=== PATIENT | female | born 1935 | race Caucasian/White ===

== ENCOUNTER 2019-09-15 01:53 | Day surgery (SDC) | payer MEDICARE, SELFPAY ==
[2019-09-08 15:07] VITALS: BMI 24.2
[2019-09-15] MEDS: LACTATED RINGERS 1,000 ML 150 ML IV CONT (09:13)
[2019-09-15 09:17] VITALS: BP 167/53; PULSE 66; RESP 20; TEMP 37.1; O2SAT 98; BMI 24.0
--- NOTE | 2019-09-15 10:13 | WPDANESEPPF ---
Anes - Initial Pre Proc Eval Procedure: Operation Date: 09/15/19 09:30 Proposed Procedures p Colonoscopy - Aba Ontiveros MD Date/Time: 09/15/19 10:13 Surgeon: Aba Ontiveros MD Pre Op Diagnosis: rectal bleeding, hx colon polyps Patient Data Age: 84 Gender: F Height: 5 ft 2 in Weight: 59.7 kg Last Vital Signs Temp 98.7 F 09/15/19 09:17 Pulse 66 09/15/19 09:17 Resp 20 09/15/19 09:17 BP 167/53 H 09/15/19 09:17 Pulse Ox 98 09/15/19 09:17 Allergies Allergy/AdvReac Type Severity Reaction Status Date / Time No Known Allergies Allergy Verified 09/15/19 08:49 Home Medications Medication Instructions Recorded Confirmed Type Eliquis 2.5 mg PO BID 06/13/19 09/08/19 History amlodipine 10 mg PO DAILY 06/13/19 09/08/19 History carvedilol 12.5 mg PO Q12H 06/13/19 09/08/19 History hydrochlorothiazide 25 mg tablet 25 mg PO DAILY #30 tablet 07/17/19 09/08/19 Rx losartan 100 mg tablet 100 mg PO DAILY 07/17/19 09/08/19 History melatonin 10 mg disintegrating 10 mg PO DAILY 07/17/19 09/08/19 History tablet oxybutynin chloride 10 mg 10 mg PO DAILY #90 tablet 07/18/19 09/08/19 Rx tablet,extended release 24 hr lorazepam 0.5 mg PO QPM 09/08/19 09/08/19 History Patient hx anesthesia problems: none Family hx anesthesia problems: none [facility] Social History Social History Social History: Patient was home alone and has a Life Alert button. Patient is a full code and her daughter Sandra is her durable power reservoir engineering consultant for healthcare. The patient is a full code. Patient has a son and a daughter. Her daughter helps but her son has MS and is unable to. She is retired dancer. Smoking status: Never smoker Alcohol intake: never Substance use: never Substance use type: does not use Gender identity (if verbalized by the patient): Female Spiritual care concerns: No Agree to blood products: Yes Anes - Eval Final PreProcedure Day of Procedure 09/15/19 10:13 Patient weight: normal Heart: regular rate and rhythm Lungs: clear to auscultation Airway: Mallampati scale class II Neurological: alert and oriented Last oral intake: >/= 8 hours ASA classification: III Emergent: no Anesthetic plan: proceed Anesthesia type and monitoring: general GIVS and standard monitoring Informed Consent: The patient's anesthetic plan and its attendant risks and benefits were discussed with the patient/family/POA. Questions were solicited and answers provided to the satisfaction of the patient/family/POA.
--- NOTE | 2019-09-15 10:30 | P.CONGI_ITS ---
Assessment and Plan Additional Plan This is an 84-year-old white female patient seen in evaluation at the request Dr. Won Sinclair. Patient also followed by Dr. Padgett. Patient has noticed intermittent rectal bleeding over the last 1 year. She typically notes that after a bowel movement. Described as bright red blood per rectum. She denies any abdominal pain. Her bowel habits are normal. Her past history is significant for colon polyps resected in 2011. Family history is significant her sister had colon polyps. Past medical history is significant for a pacemaker followed by Dr. Aldana. She has been treated for hypertension. Atrial flutter. She has previously had a cholecystectomy. She has a history of back surgery and a history of a hysterectomy. Medications include Eliquis on hold for procedure. Losartan, amlodipine, melatonin, hydrochlorothiazide, carvedilol, no known drug allergies. Physical exam reveals her to be alert. Vital signs stable. HEENT exam unremarkable. Lungs are clear to auscultation and percussion. Heart is without murmur or extra sounds. Abdominal exam bowel sounds are present soft nontender with no organomegaly. Digital external rectal exam normal. Impression 1. Personal history of colon polyps. Plan is for surveillance colonoscopy at this time. High-fiber diet advised. Further recommendations will be given after endoscopy. GI Consult Note Consult date/time: 09/15/19 10:30 HPI: Eunice Arnold is a 84 year old female [facility] Social History Social History Social History: Patient was home alone and has a Life Alert button. Patient is a full code and her daughter Sandra is her durable power infant toddler lead teacher for healthcare. The patient is a full code. Patient has a son and a daughter. Her daughter helps but her son has MS and is unable to. She is retired dancer. Smoking status: Never smoker Alcohol intake: never Substance use: never Substance use type: does not use Gender identity (if verbalized by the patient): Female Spiritual care concerns: No Agree to blood products: Yes Meds Home Medications and Allergies Home Medications Medication Instructions Recorded Confirmed Type Eliquis 2.5 mg PO BID 06/13/19 09/08/19 History amlodipine 10 mg PO DAILY 06/13/19 09/08/19 History carvedilol 12.5 mg PO Q12H 06/13/19 09/08/19 History hydrochlorothiazide 25 mg tablet 25 mg PO DAILY #30 tablet 07/17/19 09/08/19 Rx losartan 100 mg tablet 100 mg PO DAILY 07/17/19 09/08/19 History melatonin 10 mg disintegrating 10 mg PO DAILY 07/17/19 09/08/19 History tablet oxybutynin chloride 10 mg 10 mg PO DAILY #90 tablet 07/18/19 09/08/19 Rx tablet,extended release 24 hr lorazepam 0.5 mg PO QPM 09/08/19 09/08/19 History Allergies Allergy/AdvReac Type Severity Reaction Status Date / Time No Known Allergies Allergy Verified 09/15/19 08:49 Vital Signs Vital Signs - 24 hr 09/15/19 09:17 Temperature 37.1 C Pulse Rate 66 Respiratory Rate 20 Blood Pressure 167/53 H Pulse Oximetry 98
[2019-09-15 10:59] VITALS: BP 114/47; PULSE 69; RESP 19; O2SAT 96
[2019-09-15 11:09] VITALS: BP 139/61; PULSE 71; O2SAT 96
[2019-09-15 11:16] VITALS: BP 155/67; PULSE 68; O2SAT 100
== END 2019-09-15 11:35 | disposition home or self-care (01) ==
PROVIDERS: PCP Internal Medicine; Referring Provider Obstetrics & Gynecology Gynecology; Visit Provider Internal Medicine Gastroenterology
PROC: 0DJD8ZZ Inspection of Lower Intestinal Tract, Via Natural or Artificial Opening Endoscopic (ICD-10-PCS; CPT 45378; principal; 2019-09-15 09:30)
DX: Z12.11 Encounter for screening for malignant neoplasm of colon (principal); D12.0 Benign neoplasm of cecum; K63.5 Polyp of colon; K57.30 Diverticulosis of large intestine without perforation or abscess without bleeding; K64.8 Other hemorrhoids; Z83.71 Family history of colonic polyps; I10 Essential (primary) hypertension; Z95.0 Presence of cardiac pacemaker; Z79.01 Long term (current) use of anticoagulants
CPT/HCPCS: 45385; 88305; J2704; J7120

== ENCOUNTER 2020-04-01 11:58 | Outpatient (CLI) | payer MEDICARE, SELFPAY ==
[2020-04-01 13:09] LABS: Add Urine Microscopic? YES; Appearance Urine Clear (Clear); Bacteria Urine Trace /hpf; Bilirubin Urine 1+ (Negative); Blood Urine Negative (Negative); Color Urine Amber (Yellow); Glucose Urine UA Negative (Negative); Hyaline Casts Urine 20-29 /lpf; Ketones Urine Negative (Negative); Leukocyte Esterase Ur 2+ LEU/UL (Negative); Mucus Urine Moderate /lpf; Nitrate Urine Positive (Negative); Protein Urine 2+ mg/dL (Negative); Specific Grav Ur 1.023 (1.001-1.035); Squamous Epithelial Cell Urine Many /hpf (Few); WBC Urine 31-50 /hpf
== END 2020-04-01 11:59 | disposition home or self-care (01) ==
LOC: ANHLAB 12:00
PROVIDERS: PCP Internal Medicine; Visit Provider Internal Medicine
DX: R30.0 Dysuria (principal)
CPT/HCPCS: 81001; 87086; 87088

== ENCOUNTER 2020-09-11 14:12 | Outpatient (CLI) | payer MEDICARE, SELFPAY | END 2020-09-11 14:13 | disposition home or self-care (01) | LOC: ANHCOVIDVC 14:12 | PROVIDERS: PCP Internal Medicine | DX: Z23 Encounter for immunization (principal) | CPT/HCPCS: 0001A; 91300 ==

== ENCOUNTER 2020-10-02 14:12 | Outpatient (CLI) | payer MEDICARE, SELFPAY | END 2020-10-02 14:13 | disposition home or self-care (01) | LOC: ANHCOVIDVC 14:12 | PROVIDERS: PCP Internal Medicine | DX: Z23 Encounter for immunization (principal) | CPT/HCPCS: 0002A; 91300 ==